=== PATIENT | male | born 1960 | race Caucasian/White ===

== ENCOUNTER 2017-06-08 08:11 | Observation (INO) ==
[2017-06-08] MEDS ORDERED: Ondansetron 4 MG/2 ML VIAL IVP ONE (08:21)
[2017-06-08] MEDS ORDERED: Aspirin 81 MG TAB.CHEW PO ONE (08:21)
[2017-06-08] MEDS ORDERED: *HR* LORazepam 2 MG/ML VIAL IVP ONE (08:21)
[2017-06-08] MEDS ORDERED: Furosemide 40 MG/4 ML VIAL IVP ONE (08:25)
--- NOTE | 2017-06-08 08:28 | Emergency Department Note ---
Disposition Clinical Impression: Congestive heart failure Qualifiers: Congestive heart failure type: systolic Congestive heart failure chronicity: acute Qualified Code(s): I50.21 - Acute systolic (congestive) heart failure Disposition: Admitted As Inpatient Referrals: Bertrand Sherman MD [Primary Care Provider] - Forms: ED Satisfaction Letter, Work/School Release Time of Disposition: 12:15 SOB HPI - General Chief Complaint: ED Abdominal Pain Stated Complaint: cynthia, abd cramping Time Seen by Provider: 06/08/17 08:20 Source: patient Mode of arrival: ambulatory Limitations: no limitations Nursing Notes Reviewed: Yes Vital Signs Reviewed: Yes - History of Present Illness 57-year-old white male with a history of ischemic cardiomyopathy presents with abdominal cramping and chest discomfort and shortness of breath that started yesterday evening. His abdominal cramping and chest discomfort is intermittent and lasts minutes at a time. He states it makes him feel like he cannot get enough air. He states it "doubles him over". His last episode of chest and abdominal discomfort was just prior to presenting here. He has no pain in his chest or abdomen at this time. He does feel short of breath. He states he was just in the hospital at [facility]. He states he was asked katt Velazquez for heart failure. He states he had an angiogram done which showed no blockages. He states he had "leave AGAINST MEDICAL ADVICE", because he had to take care of his family. At this point in time has complaints or shortness of breath and nausea. He also says he has some tingling in his fingers. Pt Subjective Complaint: shortness of breath Onset (ago): day(s) (2) Context: other (Recent hospitalization) Severity: moderate Consistency/Duration: intermittent Improves with: nothing Worsens with: exertion Known history of: congestive heart failure Associated symptoms: Reports: chest pain, other (Abdominal cramping) Treatment prior to arrival: none Cough present: No - Related Data Home oxygen amount: none Home Medications Medication Instructions Recorded Confirmed Albuterol Sulfate [Albuterol 1 puff IH QID 06/08/17 06/08/17 Inhaler] Amoxicillin/Clavulanate [Augmentin] 875 mg PO BIDWM 06/08/17 06/08/17 Allergies Allergy/AdvReac Type Severity Reaction Status Date / Time codeine Allergy Anaphylaxis Verified 05/12/17 12:50 Hydromorphone [From Dilaudid] AdvReac Hallucinati Verified 05/12/17 12:50 ng morphine AdvReac Hallucinati Verified 05/12/17 12:50 ng "All Steroids" AdvReac Agitated Uncoded 05/12/17 12:50 All systems ED: reviewed and negative except as stated. Constitutional: Denies: fever, chills Cardiovascular: Reports: chest pain Respiratory: Reports: dyspnea Gastrointestinal: Reports: abdominal pain, nausea. Denies: vomiting, diarrhea Musculoskeletal: Denies: back pain, neck pain Neurological: Reports: paresthesias (Fingers). Denies: headache, weakness, numbness Past Medical History - Past Medical History Medical history: Reports: arthritis, hypertension, myocardial infarction, seizures, other Surgical history: Reports: herniorrhaphy (Inguinal x3), orthopedic, other (Knee arthroscopies, ulnar nerve repair, shoulder surgeries), other Psychiatric history: Reports: anxiety - Social History Smoking Status: Former smoker Smokeless Tobacco Status: No Alcohol use: Reports: none Drug use: Reports: marijuana, methamphetamine, IV Drug Use, prescription drug abuse, other Physical Exam - General Limitations: no limitations General appearance: alert, in no apparent distress - Head Head exam: atraumatic, normocephalic - Eye Eye exam: Present: PERRL, EOMI. Absent: scleral icterus, conjunctival injection - ENT ENT exam: normal oropharynx, mucous membranes moist, TM's normal bilaterally - Neck Neck exam: Present: normal inspection, full ROM, trachea midline. Absent: tenderness, lymphadenopathy - Respiratory Respiratory exam: Present: other (Decreased breath sounds in the bases with basilar rales). Absent: respiratory distress, wheezes - Cardiovascular Cardiovascular exam: Present: tachycardia, irregular rhythm. Absent: systolic murmur, diastolic murmur - Abdominal Exam Abdominal exam: Present: soft, Non-Tender, normal bowel sounds. Absent: organomegaly, mass - Extremities Exam Extremities exam: Present: normal inspection, full ROM, normal capillary refill. Absent: pedal edema, calf tenderness - Neurological Exam Neurological exam: Present: alert, oriented X3, normal gait - Psychiatric Psychiatric exam: Present: normal affect, normal mood - Skin Skin exam: Present: warm, dry, intact, normal color. Absent: cyanosis, diaphoresis Course - Reevaluation(s) Reevaluation #1: Patient is resting comfortably. His heart rate is down to 106. He has had 1800 mL of urine output. His initial troponin was 0.06, his repeat was 0.06. He has had no further chest discomfort. I will discuss the case with Dr. Garcia to admit for further diuresis. Time: 11:22 Vital Signs Temperature 97.7 F 06/08/17 08:13 Pulse Rate 124 06/08/17 08:13 Respiratory Rate 18 06/08/17 08:13 Blood Pressure 156/98 06/08/17 08:13 O2 Sat by Pulse Oximetry 100 06/08/17 08:13 Temperature 98 F 06/08/17 08:46 Pulse Rate 110 06/08/17 11:32 Respiratory Rate 18 06/08/17 11:32 Blood Pressure 130/91 06/08/17 11:32 O2 Sat by Pulse Oximetry 100 06/08/17 11:32 Oxygen Delivery Oxygen Delivery Room Air Shortness of Breath/Dyspnea - [facility] Narrative Medical decision making narrative: His clinical presentation consistent with congestive heart failure. Based on review of his records he has significant left ventricular dysfunction with an ejection fraction of around 20%. He has no significant coronary artery disease based on a recent cardiac catheter less than 2 weeks ago. The plan will be observation admission, diuresis and control of his congestive heart failure. - Medical Records Medical records reviewed: Yes I reviewed the patient's medical records. Old records were reviewed. He was hospitalized the end of April. He states he left AMA on the . He did have an angiogram done during that visit. The report was reviewed. He had severe left ventricular dysfunction with an ejection fraction of 15%. This was confirmed by an echocardiogram which showed an ejection fraction of 20%. He had a 20% LAD, and a 20% circumflex, right coronary artery and left main were free of disease. - Lab Data Result diagrams: 06/08/17 08:25 06/08/17 08:25 Lab Results 06/08/17 06/08/17 06/08/17 Range/Units 08:25 08:25 08:25 WBC 8.7 (4.3-11.1) K/mcL RBC 4.41 (4.19-5.50) M/mcL Hgb 13.2 (12.9-16.9) g/dL Hct 40.0 (37.5-50.1) % MCV 90.7 (83.0-100.0) fL MCH 29.9 (28.0-33.3) pg MCHC 33.0 (31.6-35.5) g/dL RDW 14.3 (11.5-14.5) % Plt Count 317 (140-400) K/mcL MPV 10.2 (9.4-12.4) fL Immature Gran % 0.3 (0-4) % Seg Neutrophils % 65.4 % Lymphocytes % 24.3 % Monocytes % 6.8 % Eosinophils % 2.5 % Basophils % 0.7 % Neutrophils # 5.7 (1.6-8.9) K/mcL Lymphocytes # 2.1 (0.6-4.6) K/mcL Monocytes # 0.6 (0.0-1.3) K/mcL Eosinophils # 0.2 (0.0-0.6) K/mcL Basophils # 0.1 (0.0-0.2) K/mcL PT 13.7 H (9.4-12.1) Seconds INR 1.3 Sodium 136 (136-145) mEq/L Potassium 4.5 (3.5-4.5) mEq/L Chloride 103 (98-109) mEq/L Carbon Dioxide 24 (19-29) mEq/L BUN 22 (8-26) mg/dL Creatinine 1.33 H (0.72-1.25) mg/dL Est GFR ( Amer) > 60 (> 60) Est GFR (Non-Af Amer) 55 L (> 60) BUN/Creatinine Ratio 17 (6-26) Glucose 127 H (70-99) mg/dL Calculated Osmolality 287 (280-300) Lactic Acid (0.5-2.2) mmol/L Calcium 9.2 (8.6-10.8) mg/dL Total Bilirubin 0.4 (0.2-1.2) mg/dL AST 42 H (5-34) Units/L ALT 38 (0-55) Units/L Alkaline Phosphatase 111 (38-126) Units/L Troponin I (0-0.03) ng/mL B-Natriuretic Peptide (0-100) pg/mL Serum Total Protein 7.4 (6.0-8.3) g/dL Albumin 3.6 (3.5-5.0) g/dL Globulin 3.8 H (2.4-3.5) g/dL Albumin/Globulin Ratio 0.9 L (1.1-2.2) Lipase (8-78) Units/L 06/08/17 06/08/17 06/08/17 Range/Units 08:25 08:25 08:25 WBC (4.3-11.1) K/mcL RBC (4.19-5.50) M/mcL Hgb (12.9-16.9) g/dL Hct (37.5-50.1) % MCV (83.0-100.0) fL MCH (28.0-33.3) pg MCHC (31.6-35.5) g/dL RDW (11.5-14.5) % Plt Count (140-400) K/mcL MPV (9.4-12.4) fL Immature Gran % (0-4) % Seg Neutrophils % % Lymphocytes % % Monocytes % % Eosinophils % % Basophils % % Neutrophils # (1.6-8.9) K/mcL Lymphocytes # (0.6-4.6) K/mcL Monocytes # (0.0-1.3) K/mcL Eosinophils # (0.0-0.6) K/mcL Basophils # (0.0-0.2) K/mcL PT (9.4-12.1) Seconds INR Sodium (136-145) mEq/L Potassium (3.5-4.5) mEq/L Chloride (98-109) mEq/L Carbon Dioxide (19-29) mEq/L BUN (8-26) mg/dL Creatinine (0.72-1.25) mg/dL Est GFR ( Amer) (> 60) Est GFR (Non-Af Amer) (> 60) BUN/Creatinine Ratio (6-26) Glucose (70-99) mg/dL Calculated Osmolality (280-300) Lactic Acid 2.1 (0.5-2.2) mmol/L Calcium (8.6-10.8) mg/dL Total Bilirubin (0.2-1.2) mg/dL AST (5-34) Units/L ALT (0-55) Units/L Alkaline Phosphatase (38-126) Units/L Troponin I 0.06 H* (0-0.03) ng/mL B-Natriuretic Peptide 3155 H (0-100) pg/mL Serum Total Protein (6.0-8.3) g/dL Albumin (3.5-5.0) g/dL Globulin (2.4-3.5) g/dL Albumin/Globulin Ratio (1.1-2.2) Lipase (8-78) Units/L 06/08/17 06/08/17 Range/Units 08:25 10:45 WBC (4.3-11.1) K/mcL RBC (4.19-5.50) M/mcL Hgb (12.9-16.9) g/dL Hct (37.5-50.1) % MCV (83.0-100.0) fL MCH (28.0-33.3) pg MCHC (31.6-35.5) g/dL RDW (11.5-14.5) % Plt Count (140-400) K/mcL MPV (9.4-12.4) fL Immature Gran % (0-4) % Seg Neutrophils % % Lymphocytes % % Monocytes % % Eosinophils % % Basophils % % Neutrophils # (1.6-8.9) K/mcL Lymphocytes # (0.6-4.6) K/mcL Monocytes # (0.0-1.3) K/mcL Eosinophils # (0.0-0.6) K/mcL Basophils # (0.0-0.2) K/mcL PT (9.4-12.1) Seconds INR Sodium (136-145) mEq/L Potassium (3.5-4.5) mEq/L Chloride (98-109) mEq/L Carbon Dioxide (19-29) mEq/L BUN (8-26) mg/dL Creatinine (0.72-1.25) mg/dL Est GFR ( Amer) (> 60) Est GFR (Non-Af Amer) (> 60) BUN/Creatinine Ratio (6-26) Glucose (70-99) mg/dL Calculated Osmolality (280-300) Lactic Acid (0.5-2.2) mmol/L Calcium (8.6-10.8) mg/dL Total Bilirubin (0.2-1.2) mg/dL AST (5-34) Units/L ALT (0-55) Units/L Alkaline Phosphatase (38-126) Units/L Troponin I 0.06 H* (0-0.03) ng/mL B-Natriuretic Peptide (0-100) pg/mL Serum Total Protein (6.0-8.3) g/dL Albumin (3.5-5.0) g/dL Globulin (2.4-3.5) g/dL Albumin/Globulin Ratio (1.1-2.2) Lipase 17 (8-78) Units/L - EKG Data EKG attestation: Yes I reviewed and interpreted this EKG. EKG results narrative: Sinus tachycardia, rate of 122, PACs, interventricular conduction delay, right axis deviation. Rhythm strip shows a sinus tachycardia with a rate of 122, a MS interval 200 ms, a QRS 142 ms with PACs. Compared to tracing dated 05/23/17 , not significantly change other than the PACs.
[2017-06-08 08:33] LABS: Basophils # 0.1 K/mcL (0.0-0.2); Basophils % 0.7 %; Eosinophils # 0.2 K/mcL (0.0-0.6); Eosinophils % 2.5 %; Hemoglobin 13.2 g/dL (12.9-16.9); Immature Granulocytes % 0.3 % (0-4); Lymphocytes # 2.1 K/mcL (0.6-4.6); Lymphocytes % 24.3 %; Mean Corpuscular Hemoglobin 29.9 pg (28.0-33.3); Mean Corpuscular Volume 90.7 fL (83.0-100.0); Mean Platelet Volume 10.2 fL (9.4-12.4); Monocytes # 0.6 K/mcL (0.0-1.3); Monocytes % 6.8 %; Neutrophils # 5.7 K/mcL (1.6-8.9); Platelet Count 317 K/mcL (140-400); Red Blood Count 4.41 M/mcL (4.19-5.50); Red Cell Distribution Width 14.3 % (11.5-14.5); Segmented Neutrophils % 65.4 %
[2017-06-08 08:41] LABS: INR 1.3; Prothrombin Time 13.7 Seconds (9.4-12.1)
[2017-06-08 08:53] LABS: Alanine Aminotransferase 38 Units/L (0-55); Albumin 3.6 g/dL (3.5-5.0); Albumin/Globulin Ratio 0.9 (1.1-2.2); Alkaline Phosphatase 111 Units/L (38-126); Aspartate Amino Transferase 42 Units/L (5-34); BUN/Creatinine Ratio 17 (6-26); Bilirubin,Total 0.4 mg/dL (0.2-1.2); Blood Urea Nitrogen 22 mg/dL (8-26); Calcium 9.2 mg/dL (8.6-10.8); Carbon Dioxide 24 mEq/L (19-29); Chloride 103 mEq/L (98-109); Globulin 3.8 g/dL (2.4-3.5); Glucose 127 mg/dL (70-99); Osmolality,Calculated 287 (280-300); Potassium 4.5 mEq/L (3.5-4.5); Sodium 136 mEq/L (136-145); Total Protein 7.4 g/dL (6.0-8.3); eGFR For African Americans > 60 (> 60); eGFR For Non-African Americans 55 (> 60)
[2017-06-08] MEDS ORDERED: Furosemide 40 MG/4 ML VIAL IVP SCH (12:50)
[2017-06-08] MEDS ORDERED: Naloxone 0.4 MG/ML INJ IVP PRN (12:50)
[2017-06-08] MEDS: Furosemide 40 MG/4 ML VIAL IVP SCH (17:18)
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
[2017-06-08] MEDS: Isosorbide MONOnitrate (24 HR) 30 MG TAB.ER.24H PO SCH (19:58)
[2017-06-08] MEDS: Metoprolol XL (24 HR) Succ 25 MG TAB.ER.24H PO SCH (19:58)
[2017-06-08] MEDS: *HR* Digoxin 0.125 MG TABLET PO SCH (19:58)
[2017-06-09] MEDS ORDERED: *HR* Enoxaparin 40 MG/0.4 ML SYRINGE SQ SCH (06:00)
[2017-06-09 06:28] VITALS: BP 128/83
[2017-06-09] MEDS: Furosemide 40 MG/4 ML VIAL IVP SCH (07:31)
[2017-06-09] MEDS: Metoprolol XL (24 HR) Succ 25 MG TAB.ER.24H PO SCH (08:55)
[2017-06-09] MEDS: Isosorbide MONOnitrate (24 HR) 30 MG TAB.ER.24H PO SCH (08:55)
[2017-06-09] MEDS: *HR* Digoxin 0.125 MG TABLET PO SCH (08:55)
[2017-06-09] MEDS ORDERED: Aspirin 81 MG TAB.CHEW PO SCH (09:00)
--- NOTE | 2017-06-09 09:40 | Discharge Summary ---
Date of Encounter: 06/09/17 Time of Encounter: 09:25 - Discharge Diagnosis (1) Cardiomyopathy Priority: Primary Status: Chronic Qualifiers: Cardiomyopathy type: unspecified Qualified Code(s): I42.9 - Cardiomyopathy , unspecified (2) COPD (chronic obstructive pulmonary disease) Priority: Secondary Status: Chronic Qualifiers: COPD type: unspecified COPD Qualified Code(s): J44.9 - Chronic obstructive pulmonary disease, unspecified (3) CKD (chronic kidney disease) stage 3, GFR 30-59 ml/min Priority: Secondary Status: Acute - Discharge Medications Prescriptions: Bumetanide [Bumex] 1 mg PO DAILY #30 tablet Digoxin [Lanoxin] 0.125 mg PO DAILY #30 tablet Isosorbide MONOnitrate (24 HR) [Imdur] 30 mg PO DAILY #30 tab.er.24h Metoprolol XL (24 HR) Succ [Toprol Xl] 25 mg PO DAILY #30 tab.er.24h Home Medications: Albuterol Sulfate [Albuterol Inhaler] 1 puff IH QID PRN #0 06/09/17 [Rx] Bumetanide [Bumex] 1 mg PO DAILY #30 tablet 06/09/17 [Rx] Digoxin [Lanoxin] 0.125 mg PO DAILY #30 tablet 06/09/17 [Rx] Isosorbide MONOnitrate (24 HR) [Imdur] 30 mg PO DAILY #30 tab.er.24h 06/09/17 [ Rx] Metoprolol XL (24 HR) Succ [Toprol Xl] 25 mg PO DAILY #30 tab.er.24h 06/09/17 [ Rx] Allergies/Adverse Reactions: 3 Allergy/AdvReac Type Severity Reaction Status Date / Time codeine Allergy Anaphylaxis Verified 05/12/17 12:50 Hydromorphone [From Dilaudid] AdvReac Hallucinati Verified 05/12/17 12:50 ng morphine AdvReac Hallucinati Verified 05/12/17 12:50 ng "All Steroids" AdvReac Agitated Uncoded 05/12/17 12:50 Date of admission: 06/08/17 12:40 Primary care physician: Bertrand Sherman MD - Patient Status Disposition: Home, Self-Care Functional capacity at discharge: independent ambulation Overall status at discharge: patient is progressing back to baseline - Discharge Instructions Follow Up With: Bertrand Sherman MD [Primary Care Provider] - 1 week - Diet and Activity Activity: resume usual activities as tolerated Diet: advance to your usual diet Hospital course: Mr. Alberts is a 57 year old male who came to emergency room stating he had dyspnea and minimal cough but no chest pain increasing over the past 24-48 hours. He was evaluated in emergency room and felt to have exacerbation of heart failure. He was admitted [facility] floor for ongoing care needs. Initial orders were written by the emergency room physician. I saw him on June 08 and performed a history and physical. He was started on IV Lasix. I added Imdur, Lanoxin, and Toprol-XL. He had good clinical response with over 2000 mL urine output. On June 09 he felt stable for discharge home which I felt was reasonable. He will continue Imdur, Lanoxin, and Toprol at discharge. I will also start him on oral Bumex. He will follow with his PCP Dr. Sherman within 1 week who can order follow-up labs to monitor dig level and electrolytes. - Time Spent with Patient Total time spent providing and/or coordinating discharge services: - Constitutional Vitals: Temp Pulse Resp BP Pulse Ox 98.3 F 100 18 128/83 96 06/09/17 06:27 06/09/17 06:27 06/09/17 06:27 06/09/17 06:27 06/09/17 09:10
--- NOTE | 2017-06-09 15:15 | Electrocardiograph Report ---
[address] [address] Test Date: 2017-06-08 Pat Name: Hermann Alberts Department: [id number] Room: [facility] Gender: M Satellite Specialist: [id number] : 1960 Requested By: Angelo Lawson Order Number: [id number] Reading MD: Edward De La Rosa Measurements Intervals [place] Rate: 122 P: ID: 0 QRS: 198 QRSD: 142 T: 65 QT: 357 QTc: 430 Interpretive Statements SINUS TACHYCARDIA LBBB Electronically Signed On 06-09-2017 15:14:10 EST by Edward De La Rosa
== END 2017-06-09 10:15 | disposition home or self-care (01) ==
LOC: EMEROOPIK 08:11 → INPPIK 08:11
PROVIDERS: ADMIT Internal Medicine; ATTEND Internal Medicine